=== PATIENT | male | born 1955 | race Caucasian/White ===

== ENCOUNTER 2017-03-11 05:08 | Day surgery (SDC) | payer BC ==
[2017-02-26 11:37] VITALS: BMI 35.5
--- NOTE | 2017-02-27 11:47 | HP ---
DATE OF ADMISSION: 03/11/2017 DATE OF DICTATION: 01/20/2017 REASON FOR ADMISSION: Recurrent chronically incarcerated complex right inguinal hernia. BRIEF HISTORY: This is a 61-year-old gentleman who, in 2007, underwent an open right inguinal hernia repair by Dr. Loza. At that time, the patient, on his postoperative visit, was noted to have mass in his right groin and according to the patient, this is the same mass he had prior to his inguinal hernia surgery repair. The patient was told to come back in approximately 4 months' time to be reevaluated and at that time, the patient was told what was noted is just his body habitus and the mass is still present. Over this time course, the patient states the mass has gotten a little bit larger and now he has some discomfort in the area and is considering having this repaired. He has had no nausea, no vomiting, no change in bowel habits. From the first surgery, the patient was also told he had a fluid collection around his right testicle and that this could be operated on. He had seen a Urologist at that time and has opted not to proceed with any intervention. PAST MEDICAL HISTORY: Significant for pulmonary issues. The patient states he had lung damage from his job. I am not sure what kind of lung problems he has at this time. He has hypercholesterolemia. No coronary artery disease, hypertension, or diabetes. PAST SURGICAL HISTORY: As mentioned above. MEDICATIONS: Vitamins and Paxil. ALLERGIES: None. SOCIAL HISTORY: The patient does not smoke nor drink. PHYSICAL EXAMINATION: Lungs: Clear. Heart: Regular rate and rhythm. Abdomen: Obese, soft, nontender, nondistended. Patient has a large mass in the right groin, which was not reducible in the supine position. The right scrotum is normal. The right testicle is large secondary to his known hydrocele. On the left side, he has a small left inguinal hernia. The left scrotum and testicle appear to be within normal limits. The patient is obese and he has a large amount of fat overlying both inguinal regions. IMPRESSION/PLAN: Recurrent, chronically incarcerated complex right inguinal hernia: This is a 61-year-old gentleman who underwent a hernia repair in 2007. It seems to me that based on this patient's description, the hernia was present after the repair. Whether this is related to a seroma that was noted at the time of surgery or actually this mass that is noted today is not clear to me. At this present time, he clearly has a recurrent hernia and this should be addressed. He is also noted to have small left inguinal hernia as well on examination. He has a moderate sized right sized hydrocele, which will be addressed in the future should this become symptomatic. The patient will be tentatively scheduled for a laparoscopic repair of complex chronically incarcerated recurrent right inguinal hernia and a laparoscopic repair of a left inguinal hernia. Due to the chronic incarceration and side of the right inguinal hernia, he is more likely to develop a postoperative seroma, which may or may not resolve. The patient understands this and still wants to proceed. The indications, alternatives and complications discussed. Questions answered. Will plan to obtain written consent the day of surgery. Alonso SOLANO [id number] CC: Ignacio Martinez MD
[2017-03-11] MEDS ORDERED: TAMSULOSIN HCL 0.4 MG CAP.ER.24H (FP) PO ONE (07:00)
[2017-03-11] MEDS ORDERED: TAMSULOSIN HCL 0.4 MG CAP.ER.24H (FP) ONE (07:02)
[2017-03-11] MEDS ORDERED: ceFAZolin SODIUM 1 GM VIAL ONE (07:02)
[2017-03-11] MEDS ORDERED: MIDAZOLAM HCL 2 MG/2 ML SINGLE DOSE VIAL ONE (08:07)
[2017-03-11] MEDS ORDERED: PROPOFOL 20 ML ONE (08:17)
[2017-03-11] MEDS ORDERED: ROCURONIUM BROMIDE 50 MG/5 ML VIAL ONE ×2 (08:17→08:37)
[2017-03-11] MEDS ORDERED: ceFAZolin SODIUM 1 GM VIAL IVPB ONE (08:19)
[2017-03-11] MEDS ORDERED: GLYCOPYRROLATE 0.2 MG/1 ML VIAL ONE (09:45)
[2017-03-11] MEDS ORDERED: NEOSTIGMINE METHYLSULFATE 0.5 MG/ML - 10 ML MDV ONE (09:45)
[2017-03-11] MEDS ORDERED: LIDOCAINE HCL/PF 2% SDV 5ML VIAL ONE (09:46)
[2017-03-11] MEDS ORDERED: DEXAMETHASONE SOD PHOSPHATE 4 MG/1 ML VIAL ONE (09:46)
[2017-03-11] MEDS ORDERED: ONDANSETRON 4 MG/2 ML VIAL ONE (09:46)
[2017-03-11] MEDS ORDERED: PROMETHAZINE HCL 25 MG/1 ML VIAL IVPUSH PRN (10:29)
[2017-03-11] MEDS ORDERED: oxyCODONE HCL 5 MG TABLET PO PRN (10:29)
[2017-03-11] MEDS ORDERED: ONDANSETRON 4 MG/2 ML VIAL IVPUSH PRN (10:29)
[2017-03-11 11:20] VITALS: TEMP 98.5
[2017-03-11] MEDS ORDERED: IBUPROFEN 600 MG TABLET (FP) PO ONE ×2 (13:56→14:00)
[2017-03-11 15:18] VITALS: BP 139/79; PULSE 98
--- NOTE | 2017-03-11 18:22 | OP ---
DATE OF OPERATION: 03/11/2017 PROCEDURE: 1. Laparoscopic repair of complex recurrent incarcerated right inguinal hernia. 2. Laparoscopic repair of incarcerated left inguinal hernia. 3. Laparoscopic repair of incarcerated left lower quadrant abdominal wall hernia. All hernias were repaired with mesh. PREOPERATIVE DIAGNOSIS: 1. Chronically incarcerated complex recurrent right inguinal hernia. 2. Incarcerated left inguinal hernia. POSTOPERATIVE DIAGNOSIS: 1. Chronically incarcerated complex recurrent right inguinal hernia. 2. Incarcerated left inguinal hernia. 3. Right pantaloon. 4. Left pantaloon. 5. Incarcerated left lower quadrant abdominal wall hernia. SURGEON: Jad Dia MD MACHINE UMBRELLA TIPPER: Musa Garcia MD ANESTHESIA: Michelle Berg MD (general) ESTIMATED BLOOD LOSS: Minimal. SPECIMEN: None PAST MEDICAL COMORBIDITIES: Anxiety, depressive disorder, hypothyroidism, hypertension, hyperlipidemia, pulmonary intestinal infiltrative disease. INDICATION FOR PROCEDURE: This is a 61-year-old gentleman who is status post open right inguinal hernia repair with mesh x 2 in the past. Patient states the hernia has recurred and now he has a lump in the right groin that will not go away, and the lump is becoming increasingly larger and more painful. Patient was examined and noted to have an incarcerated recurrent complex right inguinal hernia. He was also noted to have a left inguinal hernia. Patient is here today for the above surgery. DESCRIPTION OF PROCEDURE: Patient identified, appropriately positioned on the operating room table. He was subsequently placed under general anesthesia. The abdomen and both groins were prepped and draped in the usual sterile fashion with ChloraPrep. An infraumbilical incision was made deep in the subcutaneous tissue. The fascia of the rectus muscle on the right was identified and divided sharply. The muscle was split under direct vision. A dissector balloon followed by a structural balloon placed. Also under direct vision, a suprapubic 11-mm port was placed. With prompt placement of the camera, it is obvious this patient had a recurrent direct inguinal hernia. Due to the size that was noted, a 5-mm left lower quadrant PD port was placed under direct vision. It was also obvious this gentleman had had some type of previous surgery in the preperitoneal space due to the amount of adhesions in this area and the lack of space that was developed by the balloon. Under direction vision, this space was subsequently sharply developed and in doing so, this patient had an obvious left lower quadrant abdominal wall hernia away from the inguinal region. This abdominal wall hernia contained fat. This reduced back in the preperitoneal space with blunt dissection. Once the left side was freed and space achieved, the right side was subsequently addressed. He had a large recurrent direct inguinal hernia containing fat, bladder and bowel. This reduced back in the preperitoneal space with blunt dissection. He also had a recurrent indirect inguinal hernia. Laterally, the indirect hernia contained fat that was densely adherent to the mesh. The cord structures and vessels were medial to this and peeled off the previous mesh ball that was remnant in the preperitoneal space. A 4.5 x 6 piece of Versatex mesh was subsequently keyholed and placed through the port site. The mesh was placed underneath the cord structures to reconstruct the internal ring, but anterior to the mesh ball. The mesh laterally was anchored to the anterior abdominal wall and lateral abdominal wall. Medially, it was anchored to the anterior abdominal wall, pubic and Devante's ligament. Upon completion of the right side, similar structures on the left side were identified. On the left side, the patient was noted to have a direct inguinal hernia containing fat as well as a large indirect inguinal hernia which was also incarcerated containing fat. Both were reduced back into the pre-peritoneal space. The previous left lower quadrant abdominal wall hernia was already reduced, the defect identified once again and then patched with a Versatex mesh covering the defect. Next, another 4.5 x 6 piece of Versatex mesh was keyholed and placed through the superior port site. The mesh wrapped around the cord structures laterally to reconstruct internally. Laterally, the mesh was anchored to the anterior abdominal wall and lateral abdominal wall. Medially, the mesh well overlapped in the midline, anchored to the anterior abdominal wall and pubic and Devante ligament. The pre-peritoneal space was desufflated under direct vision. The operative field was examined and noted to be hemostatic. Fascia at both port sites were re-approximated with 0 Vicryl suture and all skin holes were closed with 4-0 Biosyn followed by Dermabond. At the conclusion of the case, all sponge and needle counts were correct. A brief op note hand-written on the pre-printed form: "A [facility] will be cleared prior to giving narcotics." JAD DIA M.D. [id number] cc: Ignacio Martinez MD MTDD
== END 2017-03-11 15:19 | disposition home or self-care (01) ==
LOC: JASU-SURG 05:08
PROVIDERS: ATTEND Surgery
PROC: 0WUF4JZ Supplement Abdominal Wall with Synthetic Substitute, Percutaneous Endoscopic Approach (ICD-10-PCS; 2017-03-11)
PROC: 0YUA4JZ Supplement Bilateral Inguinal Region with Synthetic Substitute, Percutaneous Endoscopic Approach (ICD-10-PCS; principal; 2017-03-11 08:00)
DX: K40.00 Bilateral inguinal hernia, with obstruction, without gangrene, not specified as recurrent (principal); K43.6 Other and unspecified ventral hernia with obstruction, without gangrene
CPT/HCPCS: 94760

== ENCOUNTER 2023-03-06 04:04 | Day surgery (SDC) | payer OTHER ==
[2023-02-27 17:05] VITALS: BMI 34.2
[2023-03-06] MEDS ORDERED: BUPIVACAINE HCL/PF 0.5% (5MG/ML) 10 ML VIAL ONE ×2 (07:26→07:36)
[2023-03-06] MEDS ORDERED: MIDAZOLAM HCL 2 MG/2 ML SINGLE DOSE VIAL ONE (08:00)
[2023-03-06] MEDS ORDERED: LIDOCAINE 1%/EPI 1:100000 (50 ML MULTI DOSE VIAL) INF ONE (08:26)
[2023-03-06] MEDS ORDERED: BUPIVACAINE HCL/PF 0.5% (5MG/ML) 10 ML VIAL IJ ONE (08:26)
[2023-03-06] MEDS ORDERED: oxyCODONE HCL 5 MG TABLET PO PRN (08:58)
[2023-03-06] MEDS ORDERED: ONDANSETRON 4 MG/2 ML VIAL IVPUSH PRN (08:58)
[2023-03-06] MEDS ORDERED: PROMETHAZINE HCL 25 MG/1 ML VIAL IVPB PRN (08:58)
[2023-03-06 10:18] VITALS: PULSE 71; RESP 20; TEMP 98.7
[2023-03-06 10:56] VITALS: BP 127/80
== END 2023-03-06 11:15 | disposition home or self-care (01) ==
LOC: JASU-SURG 04:04
PROVIDERS: ATTEND Orthopaedic Surgery
PROC: 0SBC4ZZ Excision of Right Knee Joint, Percutaneous Endoscopic Approach (ICD-10-PCS; principal; 2023-03-06 08:00)
DX: M23.91 Unspecified internal derangement of right knee (principal)
CPT/HCPCS: 94760